=== PATIENT | female | born 1945 | race Caucasian/White ===

== ENCOUNTER → 2020-05-10 14:19 | Outpatient (CLI) | payer MEDICARE, BC ==
[2016-08-04 10:35] VITALS: BMI 31.2
[~2020-05-10 14:19] MED LIST: ADVAIR 250/501 DISK; ALBUTEROL1.25 MG/3; ALDACTONE25 MG; BETA VAL; CALCIUM 600 +1 EAC3 PO; DESYREL50 MG; E.E.S. 400400 MG PO; FLUTICASONE PRO16 GM; KLOR-CON M2020 MEQ PO; LASIX20 MG PO; MORPHINE SULFAT15 M3 PO; MUCINEX600 MG; MULTIPLE VITAMI1 TA1 PO; NEURONTIN 400400 MG; NEXIUM40 MG; NYSTATIN60 GM; NYSTOP; SPIRIVA18 MCG; SUDAFED30 MG OR; TESSALON200 MG PO; TRAZODONE HCL50 MG PO; Tessalon Perle; ZOLOFT100 MG PO; ZYLOPRIM300 MG; [UNRECOGNIZED DRUG - OTHER]
[2020-05-10 14:37] LABS: BILIRUBIN NEGATIVE (NEGATIVE); GLUCOSE NEGATIVE (NEGATIVE); KETONE NEGATIVE (NEGATIVE); NITRITE NEGATIVE (NEGATIVE); SPECIFIC GRAVITY 1.005 (1.005-1.020); UROBILINOGEN NORMAL (NORMAL)
== END | disposition home or self-care (01) ==
LOC: D.LABREF 14:19
PROVIDERS: ATTEND Family Medicine
DX: Z87.440 Personal history of urinary (tract) infections (principal); M19.90 Unspecified osteoarthritis, unspecified site; J44.9 Chronic obstructive pulmonary disease, unspecified; D64.9 Anemia, unspecified